=== PATIENT | male | born 1955 | race Caucasian/White ===

== ENCOUNTER 2019-02-27 16:32 | Inpatient (IN) ==
[~2019-02-27 16:32] MED LIST: HEPARIN/NACL 0.9% 2 UNITS/ML 1,000 ML IV ONE; LIDOCAINE 1% 20 ML VIAL ONE
[2019-02-27] MEDS ORDERED: diphenhydrAMINE CAP 25 MG CAPSULE PO PRN (16:53)
[2019-02-27] MEDS ORDERED: POTASSIUM CHLORIDE 20 MEQ TABLET PO PRN (16:53)
[2019-02-27] MEDS ORDERED: DOCUSATE SODIUM 100 MG CAPSULE PO PRN (16:53)
[2019-02-27] MEDS ORDERED: BISACODYL 5 MG TABLET PO PRN (16:53)
[2019-02-27] MEDS ORDERED: MORPHINE 4 MG/1 ML VIAL IV PRN (16:53)
[2019-02-27] MEDS ORDERED: MAGNESIUM SULF RIDER 4 GM in PREMIX 1 EACH IV PRN (16:53)
[2019-02-27] MEDS ORDERED: ACETAMINOPHEN 325 MG TABLET PO PRN (16:53)
[2019-02-27] MEDS ORDERED: ONDANSETRON 4 MG/2 ML VIAL IV PRN (16:53)
[2019-02-27] MEDS ORDERED: PHENYLEPHRINE 50 MG/5 ML VIAL ONE (16:56)
[2019-02-27] MEDS ORDERED: DEXTROSE 50% 25 GM/50 ML VIAL IV PRN (17:00)
[2019-02-27] MEDS ORDERED: PHENYLEPHRINE DRIP 40 MG/250 ML PREMIX IV PRN (17:00)
[2019-02-27] MEDS ORDERED: GLUCAGON 1 MG VIAL IM PRN (17:00)
[2019-02-27] MEDS ORDERED: HEPARIN 5,000 UNIT/1 ML VIAL ONE (17:02)
[2019-02-27] MEDS ORDERED: HEPARIN/NACL 0.9% 2 UNITS/ML 500 ML IV ONE ×3 (17:05→18:02)
[2019-02-27 17:14] LABS: Basophils # 0.1 10*3/uL (0.0-0.2); Basophils % 0.6 % (0.0-0.8); Eosinophils # 0.2 10*3/uL (0.0-0.87); Eosinophils % 0.7 % (0.00-10.9); Hematocrit 41.6 VOL% (42.0-52.0); Hemoglobin 13.4 GM/DL (14.0-18.0); Immature Granulocytes % 2.1 %; Immature Granulocytes Absolute 0.46 #; Lymphocytes # 2.7 10*3/uL (1.4-4.0); Lymphocytes % 12.5 % (21.2-54.2); Mean Corpuscular HGB Conc 32.2 GM/DL (32-36); Mean Corpuscular Volume 94.3 FL (87-102); Mean Platelet Volume 11.2 FL (9.6-12.0); Monocytes % 2.5 % (1.7-12.7); Neutrophils % 81.6 % (38.7-73.9); Platelet Count 319 T/CUMM (130-400); Red Blood Count 4.41 MC/CUMM (3.8-5.5); Red Cell Distribution Width 12.9 % (9.3-17.3); White Blood Count 21.8 T/CUMM (4-12)
[2019-02-27 17:29] LABS: CKMB % 2.6 %
[2019-02-27 17:30] LABS: Troponin I 0.896 NG/ML (0.00-0.045)
[2019-02-27 17:35] LABS: Albumin 3.1 G/DL (3.4-5.0); Band Neutrophils 5 % (0-10); Bilirubin,Total 0.6 MG/DL (0.2-1.0); Calcium 7.9 MG/DL (8.5-10.1); Eosinophils 1 % (0-10); Lymphocytes 9 % (20-55); Osmolality,Calculated 298.5 MOS/KG (273-304); Risk Ratio 6.41; Segmented Neutrophils 81 % (50-85); Thyroid Stimulating Hormone 12.6 uIU/ml (0.358-3.74); Total Cells Counted 100; Total Protein 6.7 G/DL (6.4-8.3)
[2019-02-27 17:36] LABS: Anisocytosis Slight; Atypical Lymphocytes Few; Macrocytosis Slight; Microcytosis Slight
[2019-02-27 17:37] LABS: Platelet Estimate Normal
[2019-02-27] MEDS ORDERED: NITROGLYCERIN DRIP 50 MG/250 ML BOTTLE IV PRN (19:34)
[2019-02-27] MEDS ORDERED: POTASSIUM CHLORIDE 20 MEQ/15 ML UDCUP PO ONE (19:38)
[2019-02-27] MEDS: CISATRACURIUM 200 MG in SODIUM CHLORIDE 0.9% 180 ML IV SCH (19:40)
[2019-02-27] MEDS: PROPOFOL 1,000 MG/100 ML BOTTLE IV SCH (19:40)
[2019-02-27 19:50] LABS: ABG Base Excess -10.5 MMOL/L (-2.5-2.5); ABG HCO3 16.1 MMOL/L (20-26); ABG Oxygen Saturation 82.6 % (95-100); ABG PCO2 58.8 MM HG (35-48); ABG PO2 62.7 MM HG (80-95); ABG TCO2 18.1 MMOL/L (23-27)
[2019-02-27 19:53] LABS: ABG PH 7.143 (7.35-7.45)
[2019-02-27 20:00] LABS: Basophils # 0.2 10*3/uL (0.0-0.2); Basophils % 0.5 % (0.0-0.8); Eosinophils # 0.1 10*3/uL (0.0-0.87); Eosinophils % 0.2 % (0.00-10.9); Hematocrit 43.6 VOL% (42.0-52.0); Hemoglobin 13.7 GM/DL (14.0-18.0); Immature Granulocytes % 1.9 %; Immature Granulocytes Absolute 0.61 #; Lymphocytes # 3.7 10*3/uL (1.4-4.0); Lymphocytes % 11.5 % (21.2-54.2); Mean Corpuscular HGB Conc 31.4 GM/DL (32-36); Mean Corpuscular Volume 96.2 FL (87-102); Mean Platelet Volume 11.6 FL (9.6-12.0); Monocytes % 7.2 % (1.7-12.7); NRBC # 0.02 10*3/uL; Neutrophils % 78.7 % (38.7-73.9); Red Blood Count 4.53 MC/CUMM (3.8-5.5); Red Cell Distribution Width 13.2 % (9.3-17.3)
[2019-02-27 20:01] LABS: Platelet Count 405 T/CUMM (130-400); White Blood Count 32.1 T/CUMM (4-12)
[2019-02-27] MEDS: fentaNYL INJ 1,250 MCG in SODIUM CHLORIDE 0.9% 225 ML IV PRN (20:06)
[2019-02-27] MEDS ORDERED: SODIUM BICARBONATE 50 MEQ/50 ML VIAL IV ONE ×3 (20:15→20:30)
[2019-02-27 20:16] LABS: PT Patient Result 11.1 SECS; Partial Thromboplastin Time 40.8 SECS (0-40)
[2019-02-27 20:21] LABS: Band Neutrophils 2 % (0-10); Lymphocytes 11 % (20-55); Segmented Neutrophils 75 % (50-85); Total Cells Counted 100
[2019-02-27 20:22] LABS: Atypical Lymphocytes 1+; Burr Cells Slight; Platelet Estimate Increased
[2019-02-27 20:23] LABS: CKMB % 5.8 %
[2019-02-27 20:24] LABS: Albumin 3.2 G/DL (3.4-5.0); Bilirubin,Total 0.9 MG/DL (0.2-1.0); Calcium 7.5 MG/DL (8.5-10.1); Osmolality,Calculated 301.4 MOS/KG (273-304); Total Protein 6.8 G/DL (6.4-8.3)
[2019-02-27 20:27] LABS: Troponin I 15.4 NG/ML (0.00-0.045)
[2019-02-27] MEDS: HEPARIN DRIP 25,000 UNITS/500 ML PREMIX IV SCH (20:33)
[2019-02-27] MEDS: SODIUM BICARB INJ 150 MEQ in STERILE WATER INJ 1,000 ML IV SCH (20:41)
[2019-02-27] MEDS ORDERED: PANTOPRAZOLE 40 MG VIAL IV SCH (21:00)
[2019-02-27 21:21] LABS: ABG Base Excess -2.1 MMOL/L (-2.5-2.5); ABG HCO3 22.5 MMOL/L (20-26); ABG Oxygen Saturation 94.6 % (95-100); ABG PCO2 35.5 MM HG (35-48); ABG PH 7.401 (7.35-7.45); ABG PO2 73.5 MM HG (80-95); ABG TCO2 18.9 MMOL/L (23-27)
[2019-02-27] MEDS: FAMOTIDINE 20 MG/2 ML VIAL IV SCH (21:25)
[2019-02-27] MEDS: TICAGRELOR 90 MG TABLET PO SCH (21:25)
[2019-02-27] MEDS: PIPERACILLIN/TAZOBACTAM 3,375 MG in SODIUM CHLORIDE 0.9% 100 ML IV SCH (21:26)
[2019-02-27] MEDS: INSULIN REGULAR 100 UNIT/ML IV SCH (21:30)
[2019-02-27 21:50] LABS: Apearance,Urine Slightly Hazy (Clear); Bilirubin,Urine Negative (Negative); Blood, Urine Large mg/dL (Negative); Glucose,Urine (UA) >=500 mg/dL (Negative); Ketones,Urine Negative (Negative); Mucus,Urine Occasional /LPF (Occasional); Nitrite,Urine Negative (Negative); Protein,Urine 30 MG/DL; RBC,Urine 9 /HPF (0-4); Squamous Epithelial Cell,Urine Occasional /HPF (0-10); Urine Color Yellow (Yellow); Urine Specific Gravity 1.039 (1.001-1.035); Urine Urobilinogen < 2.0 EU/DL (0.2-1.0); WBC,Urine 2 /HPF (0-6)
[2019-02-27] MEDS ORDERED: SODIUM CHLORIDE 0.9% 500 ML IV ONE (22:54)
[2019-02-27] MEDS: INSULIN REGULAR DRIP 100 ML IV PRN (22:55)
[2019-02-27] MEDS: MINERAL OIL/PETROLATUM OPH OINT 3.5 GM TUBE BOTH EYES SCH (23:00)
[2019-02-27] MEDS ORDERED: AMIODARONE INJ 150 MG in DEXTROSE 5% 100 ML IV ONE (23:23)
[2019-02-27] MEDS ORDERED: AMIODARONE INJ 450 MG in DEXTROSE 5% 241 ML IV SCH (23:30)
[2019-02-28] MEDS ORDERED: INSULIN LISPRO 100 UNIT/ML SUBCUT SCH
[2019-02-28 00:05] LABS: ABG Base Excess -3.6 MMOL/L (-2.5-2.5); ABG HCO3 21.4 MMOL/L (20-26); ABG PCO2 29.9 MM HG (35-48); ABG PH 7.424 (7.35-7.45); ABG PO2 78.5 MM HG (80-95); ABG TCO2 16.9 MMOL/L (23-27)
[2019-02-28] MEDS: ALBUTEROL/IPRATROPIUM 3 ML NEB RESP TX SCH ×4 (00:20→21:10)
[2019-02-28] MEDS: INSULIN REGULAR 100 UNIT/ML IV SCH ×3 (00:24→07:36)
[2019-02-28] MEDS: PROPOFOL 1,000 MG/100 ML BOTTLE IV SCH ×4 (00:27→23:33)
[2019-02-28 00:47] LABS: CKMB % 7.4 %
[2019-02-28 00:50] LABS: Troponin I 54.3 NG/ML (0.00-0.045)
[2019-02-28 01:55] LABS: Basophils % 0.3 % (0.0-0.8); Eosinophils % 0.1 % (0.00-10.9); Hematocrit 41.8 VOL% (42.0-52.0); Hemoglobin 13.6 GM/DL (14.0-18.0); Immature Granulocytes % 0.4 %; Immature Granulocytes Absolute 0.05 #; Lymphocytes # 1.3 10*3/uL (1.4-4.0); Lymphocytes % 11.2 % (21.2-54.2); Mean Corpuscular HGB Conc 32.5 GM/DL (32-36); Mean Corpuscular Volume 92.9 FL (87-102); Mean Platelet Volume 11.8 FL (9.6-12.0); Platelet Count 336 T/CUMM (130-400); Red Cell Distribution Width 13.2 % (9.3-17.3); White Blood Count 11.6 T/CUMM (4-12)
[2019-02-28 02:03] LABS: INR 1.1
[2019-02-28 02:08] LABS: Partial Thromboplastin Time 62.5 SECS (0-40)
[2019-02-28 02:19] LABS: Calcium 7.3 MG/DL (8.5-10.1); Osmolality,Calculated 307.1 MOS/KG (273-304)
[2019-02-28] MEDS ORDERED: SODIUM CHLORIDE 0.9% 500 ML IV ONE ×4 (02:51→15:00)
[2019-02-28] MEDS ORDERED: POTASSIUM CHLORIDE RIDER 20 MEQ in PREMIX 1 EACH IV ONE (02:53)
[2019-02-28] MEDS: MAGNESIUM SULF RIDER 2 GM in PREMIX 1 EACH IV PRN ×2 (03:00→13:14)
[2019-02-28 03:37] LABS: ABG Base Excess -7.4 MMOL/L (-2.5-2.5); ABG HCO3 18.3 MMOL/L (20-26); ABG Oxygen Saturation 88.8 % (95-100); ABG PH 7.325 (7.35-7.45); ABG PO2 61.2 MM HG (80-95); ABG TCO2 15.6 MMOL/L (23-27)
[2019-02-28] MEDS: PHENYLEPHRINE INJ 160 MG in SODIUM CHLORIDE 0.9% 234 ML IV PRN ×2 (05:00→18:29)
[2019-02-28 05:02] LABS: ABG Base Excess -5.7 MMOL/L (-2.5-2.5); ABG HCO3 19.6 MMOL/L (20-26); ABG Oxygen Saturation 91.4 % (95-100); ABG PCO2 36.2 MM HG (35-48); ABG PH 7.338 (7.35-7.45); ABG PO2 66.8 MM HG (80-95); ABG TCO2 16.9 MMOL/L (23-27)
[2019-02-28] MEDS: PIPERACILLIN/TAZOBACTAM 3,375 MG in SODIUM CHLORIDE 0.9% 100 ML IV SCH ×3 (05:18→21:55)
[2019-02-28] MEDS: AMIODARONE INJ 450 MG in DEXTROSE 5% 241 ML IV SCH ×2 (05:52→22:21)
[2019-02-28 06:13] LABS: CKMB % 8.3 %
[2019-02-28 06:17] LABS: Troponin I 63.1 NG/ML (0.00-0.045)
[2019-02-28 06:28] LABS: Basophils % 0.2 % (0.0-0.8); Hematocrit 39.7 VOL% (42.0-52.0); Hemoglobin 13.5 GM/DL (14.0-18.0); Immature Granulocytes % 0.3 %; Immature Granulocytes Absolute 0.03 #; Lymphocytes # 1.4 10*3/uL (1.4-4.0); Mean Corpuscular Volume 90.2 FL (87-102); Mean Platelet Volume 11.4 FL (9.6-12.0); Monocytes % 2.3 % (1.7-12.7); Neutrophils % 82.2 % (38.7-73.9); Platelet Count 326 T/CUMM (130-400); Red Cell Distribution Width 13.2 % (9.3-17.3); White Blood Count 9.1 T/CUMM (4-12)
[2019-02-28 06:49] LABS: Calcium 6.9 MG/DL (8.5-10.1); Osmolality,Calculated 301.1 MOS/KG (273-304)
[2019-02-28] MEDS: fentaNYL INJ 1,250 MCG in SODIUM CHLORIDE 0.9% 225 ML IV PRN ×2 (07:09→18:56)
[2019-02-28 07:18] LABS: Band Neutrophils 16 % (0-10); Lymphocytes 18 % (20-55); Metamyelocytes 7 %; Segmented Neutrophils 54 % (50-85); Total Cells Counted 100
[2019-02-28 07:19] LABS: Microcytosis Slight
[2019-02-28] MEDS: SODIUM BICARB INJ 150 MEQ in STERILE WATER INJ 1,000 ML IV SCH (07:39)
[2019-02-28] MEDS ORDERED: POTASSIUM CHLORIDE RIDER 100 ML IV ONE ×3 (07:45→09:00)
[2019-02-28 08:06] LABS: INR 1.1; PT Patient Result 11.7 SECS
[2019-02-28 08:42] LABS: Partial Thromboplastin Time 182.3 SECS (0-40)
[2019-02-28] MEDS ORDERED: PANTOPRAZOLE 40 MG TABLET PO SCH (09:00)
[2019-02-28] MEDS: ASPIRIN EC 81 MG TABLET PO SCH (09:19)
[2019-02-28] MEDS: FAMOTIDINE 20 MG/2 ML VIAL IV SCH ×2 (09:19→21:55)
[2019-02-28] MEDS: TICAGRELOR 90 MG TABLET PO SCH ×2 (09:19→22:38)
[2019-02-28 09:23] LABS: Apearance,Urine CLEAR (Clear); Bacteria,Urine Occasional /HPF (Few); Bilirubin,Urine Negative (Negative); Blood, Urine Large mg/dL (Negative); Glucose,Urine (UA) >=500 mg/dL (Negative); Ketones,Urine Negative (Negative); Mucus,Urine Occasional /LPF (Occasional); Nitrite,Urine Negative (Negative); Protein,Urine 30 MG/DL; RBC,Urine 144 /HPF (0-4); Squamous Epithelial Cell,Urine Occasional /HPF (0-10); Urine Color Yellow (Yellow); Urine Specific Gravity 1.033 (1.001-1.035); Urine Urobilinogen < 2.0 EU/DL (0.2-1.0); WBC,Urine 6 /HPF (0-6)
[2019-02-28] MEDS: MINERAL OIL/PETROLATUM OPH OINT 3.5 GM TUBE BOTH EYES SCH ×3 (09:25→21:55)
[2019-02-28 10:43] LABS: ABG Base Excess -19.4 MMOL/L (-2.5-2.5); ABG HCO3 6.7 MMOL/L (20-26); ABG Oxygen Saturation 90.5 % (95-100); ABG PO2 79.3 MM HG (80-95); ABG TCO2 7.2 MMOL/L (23-27)
[2019-02-28 10:45] LABS: ABG PCO2 17.2 MM HG (35-48); ABG PH 7.209 (7.35-7.45)
[2019-02-28 10:59] LABS: ABG Base Excess -7.8 MMOL/L (-2.5-2.5); ABG HCO3 17.9 MMOL/L (20-26); ABG Oxygen Saturation 85.1 % (95-100); ABG PCO2 37.1 MM HG (35-48); ABG PH 7.296 (7.35-7.45); ABG PO2 56.5 MM HG (80-95)
[2019-02-28] MEDS ORDERED: CALCIUM CHLORIDE 1,000 MG/10 ML SYRINGE IV ONE ×2 (11:00)
[2019-02-28] MEDS ORDERED: SODIUM BICARBONATE 50 MEQ/50 ML VIAL IV ONE ×2 (11:00→11:02)
[2019-02-28] MEDS ORDERED: SODIUM CHLORIDE 0.9% 1,000 ML IV ONE (11:00)
[2019-02-28] MEDS: INSULIN REGULAR DRIP 100 ML IV PRN ×3 (11:20→22:16)
[2019-02-28 11:28] LABS: Basophils % 0.3 % (0.0-0.8); Hematocrit 37.9 VOL% (42.0-52.0); Hemoglobin 12.2 GM/DL (14.0-18.0); Immature Granulocytes % 0.6 %; Immature Granulocytes Absolute 0.05 #; Lymphocytes # 1.3 10*3/uL (1.4-4.0); Lymphocytes % 16.9 % (21.2-54.2); Mean Corpuscular HGB Conc 32.2 GM/DL (32-36); Mean Corpuscular Volume 92.2 FL (87-102); Mean Platelet Volume 11.2 FL (9.6-12.0); Monocytes % 2.1 % (1.7-12.7); Neutrophils % 80.1 % (38.7-73.9); Platelet Count 283 T/CUMM (130-400); Red Blood Count 4.11 MC/CUMM (3.8-5.5); Red Cell Distribution Width 13.2 % (9.3-17.3); White Blood Count 7.9 T/CUMM (4-12)
[2019-02-28] MEDS: HEPARIN DRIP 25,000 UNITS/500 ML PREMIX IV SCH ×2 (11:29→17:00)
[2019-02-28 11:58] LABS: Band Neutrophils 10 % (0-10); Eosinophils 1 % (0-10); Lymphocytes 21 % (20-55); Metamyelocytes 3 %; Segmented Neutrophils 63 % (50-85); Total Cells Counted 100
[2019-02-28 11:59] LABS: Atypical Lymphocytes Few; Microcytosis Slight
[2019-02-28 12:00] LABS: Platelet Estimate Normal
[2019-02-28 12:05] LABS: Bilirubin,Total 0.9 MG/DL (0.2-1.0); Calcium 8.1 MG/DL (8.5-10.1); Osmolality,Calculated 304.8 MOS/KG (273-304); Total Protein 4.4 G/DL (6.4-8.3)
[2019-02-28 12:16] LABS: CKMB % 9.6 %
[2019-02-28 12:17] LABS: Troponin I 59.8 NG/ML (0.00-0.045)
[2019-02-28] MEDS: POTASSIUM CHLORIDE RIDER 100 ML IV PRN ×2 (12:37→13:22)
[2019-02-28] MEDS: POTASSIUM CHLORIDE RIDER 20 MEQ in PREMIX 1 EACH IV SCH ×5 (13:51→18:39)
[2019-02-28 14:41] LABS: Basophils % 0.3 % (0.0-0.8); Hematocrit 39.5 VOL% (42.0-52.0); Hemoglobin 12.9 GM/DL (14.0-18.0); Immature Granulocytes % 0.5 %; Immature Granulocytes Absolute 0.04 #; Lymphocytes # 1.3 10*3/uL (1.4-4.0); Lymphocytes % 14.4 % (21.2-54.2); Mean Corpuscular HGB Conc 32.7 GM/DL (32-36); Mean Corpuscular Volume 92.3 FL (87-102); Mean Platelet Volume 11.2 FL (9.6-12.0); Monocytes % 3.5 % (1.7-12.7); Neutrophils % 81.3 % (38.7-73.9); Platelet Count 285 T/CUMM (130-400); Red Blood Count 4.28 MC/CUMM (3.8-5.5); Red Cell Distribution Width 13.4 % (9.3-17.3); White Blood Count 8.8 T/CUMM (4-12)
[2019-02-28 15:45] LABS: Anisocytosis 1+; Band Neutrophils 15 % (0-10); Lymphocytes 24 % (20-55); Metamyelocytes 1 %; Microcytosis 1+; Segmented Neutrophils 58 % (50-85); Total Cells Counted 100
[2019-02-28 15:46] LABS: Burr Cells 1+; Macrocytosis 1+; Platelet Estimate Normal; Poikilocytosis 1+
[2019-02-28 15:56] LABS: ABG Base Excess -7.4 MMOL/L (-2.5-2.5); ABG Oxygen Saturation 74.7 % (95-100); ABG PCO2 44.9 MM HG (35-48); ABG PH 7.255 (7.35-7.45); ABG PO2 47.2 MM HG (80-95); ABG TCO2 17.7 MMOL/L (23-27)
[2019-02-28 16:10] LABS: INR 1.2; PT Patient Result 12.7 SECS
[2019-02-28 16:33] LABS: Partial Thromboplastin Time > 320.0 SECS (0-40)
[2019-02-28] MEDS ORDERED: FUROSEMIDE 40 MG/4 ML VIAL IV ONE (16:45)
[2019-02-28] MEDS: methylPREDNISolone SOD SUC 125 MG/2 ML VIAL IV SCH ×2 (16:52→23:34)
[2019-02-28 16:55] LABS: ABG Base Excess -7.8 MMOL/L (-2.5-2.5); ABG HCO3 17.8 MMOL/L (20-26); ABG Oxygen Saturation 75.8 % (95-100); ABG PCO2 49.3 MM HG (35-48); ABG PH 7.224 (7.35-7.45); ABG PO2 49.4 MM HG (80-95); ABG TCO2 18.3 MMOL/L (23-27)
[2019-02-28 18:54] LABS: Basophils % 0.4 % (0.0-0.8); Hematocrit 40.9 VOL% (42.0-52.0); Hemoglobin 13.1 GM/DL (14.0-18.0); Immature Granulocytes % 0.3 %; Immature Granulocytes Absolute 0.03 #; Lymphocytes # 1.2 10*3/uL (1.4-4.0); Lymphocytes % 13.9 % (21.2-54.2); Mean Corpuscular Volume 93.2 FL (87-102); Mean Platelet Volume 11.5 FL (9.6-12.0); Monocytes % 2.1 % (1.7-12.7); Neutrophils % 83.3 % (38.7-73.9); Platelet Count 284 T/CUMM (130-400); Red Blood Count 4.39 MC/CUMM (3.8-5.5); Red Cell Distribution Width 13.4 % (9.3-17.3); White Blood Count 8.9 T/CUMM (4-12)
[2019-02-28 19:10] LABS: INR 1.2; PT Patient Result 12.7 SECS
[2019-02-28 19:14] LABS: Calcium 7.1 MG/DL (8.5-10.1); Osmolality,Calculated 296.4 MOS/KG (273-304)
[2019-02-28 19:32] LABS: CKMB % 11.8 %
[2019-02-28 19:33] LABS: Anisocytosis 1+; Atypical Lymphocytes 1+; Band Neutrophils 24 % (0-10); Burr Cells 2+; Lymphocytes 19 % (20-55); Macrocytosis 1+; Metamyelocytes 6 %; Microcytosis 1+; Poikilocytosis 2+; Segmented Neutrophils 50 % (50-85); Total Cells Counted 100
[2019-02-28 19:34] LABS: Platelet Estimate Normal
[2019-02-28 19:35] LABS: Troponin I 43.8 NG/ML (0.00-0.045)
[2019-02-28 19:38] LABS: Partial Thromboplastin Time > 320.0 SECS (0-40)
[2019-02-28] MEDS: CISATRACURIUM 200 MG in SODIUM CHLORIDE 0.9% 180 ML IV SCH (23:45)
[2019-03-01 01:16] LABS: Calcium 7.2 MG/DL (8.5-10.1)
[2019-03-01 01:17] LABS: INR 1.3; PT Patient Result 13.6 SECS
[2019-03-01] MEDS: ALBUTEROL/IPRATROPIUM 3 ML NEB RESP TX SCH ×4 (01:24→19:13)
[2019-03-01 01:28] LABS: Basophils % 0.2 % (0.0-0.8); Eosinophils % 0.1 % (0.00-10.9); Hematocrit 43.6 VOL% (42.0-52.0); Hemoglobin 13.8 GM/DL (14.0-18.0); Immature Granulocytes % 0.9 %; Lymphocytes % 9.1 % (21.2-54.2); Mean Corpuscular HGB Conc 31.7 GM/DL (32-36); Mean Platelet Volume 11.8 FL (9.6-12.0); Neutrophils % 86.7 % (38.7-73.9); Platelet Count 275 T/CUMM (130-400); Red Blood Count 4.59 MC/CUMM (3.8-5.5); Red Cell Distribution Width 13.6 % (9.3-17.3); White Blood Count 10.8 T/CUMM (4-12)
[2019-03-01] MEDS ORDERED: POTASSIUM CHLORIDE RIDER 10 MEQ in PREMIX 1 EACH IV ONE (01:41)
[2019-03-01] MEDS: INSULIN REGULAR DRIP 100 ML IV PRN ×4 (02:23→17:04)
[2019-03-01 02:47] LABS: Partial Thromboplastin Time > 320.0 SECS (0-40)
[2019-03-01] MEDS: PHENYLEPHRINE INJ 160 MG in SODIUM CHLORIDE 0.9% 234 ML IV PRN ×3 (02:50→17:43)
[2019-03-01 04:04] LABS: Band Neutrophils 38 % (0-10); Lymphocytes 8 % (20-55); Metamyelocytes 3 %; Myelocytes 2 %; Platelet Estimate Normal; Reactive Lymphocytes 1+; Segmented Neutrophils 47 % (50-85); Total Cells Counted 100
[2019-03-01 04:29] LABS: ABG Base Excess -10.1 MMOL/L (-2.5-2.5); ABG HCO3 19.1 MMOL/L (20-26); ABG Oxygen Saturation 86.7 % (95-100); ABG PCO2 55.2 MM HG (35-48); ABG PO2 67.2 MM HG (80-95); ABG TCO2 20.8 MMOL/L (23-27)
[2019-03-01 04:31] LABS: ABG PH 7.156 (7.35-7.45)
[2019-03-01] MEDS ORDERED: SODIUM BICARBONATE 50 MEQ/50 ML VIAL IV ONE ×2 (05:12→08:14)
[2019-03-01] MEDS: SODIUM BICARB INJ 150 MEQ in STERILE WATER INJ 850 ML IV SCH ×2 (05:30→18:05)
[2019-03-01] MEDS: methylPREDNISolone SOD SUC 125 MG/2 ML VIAL IV SCH ×4 (05:35→22:40)
[2019-03-01] MEDS: PIPERACILLIN/TAZOBACTAM 3,375 MG in SODIUM CHLORIDE 0.9% 100 ML IV SCH ×3 (05:35→22:41)
[2019-03-01 06:43] LABS: Basophils % 0.3 % (0.0-0.8); Hematocrit 41.4 VOL% (42.0-52.0); Hemoglobin 13.2 GM/DL (14.0-18.0); Immature Granulocytes % 0.6 %; Immature Granulocytes Absolute 0.09 #; Lymphocytes # 1.2 10*3/uL (1.4-4.0); Lymphocytes % 7.9 % (21.2-54.2); Mean Corpuscular HGB Conc 31.9 GM/DL (32-36); Mean Corpuscular Volume 94.5 FL (87-102); Mean Platelet Volume 11.8 FL (9.6-12.0); Neutrophils % 88.2 % (38.7-73.9); Platelet Count 276 T/CUMM (130-400); Red Blood Count 4.38 MC/CUMM (3.8-5.5); Red Cell Distribution Width 13.7 % (9.3-17.3); White Blood Count 14.5 T/CUMM (4-12)
[2019-03-01] MEDS: PROPOFOL 1,000 MG/100 ML BOTTLE IV SCH ×4 (06:43→23:23)
[2019-03-01 06:57] LABS: Calcium 6.9 MG/DL (8.5-10.1)
[2019-03-01 07:00] LABS: INR 1.3; PT Patient Result 13.8 SECS
[2019-03-01 07:12] LABS: Band Neutrophils 32 % (0-10); Lymphocytes 5 % (20-55); Metamyelocytes 2 %; Myelocytes 1 %; Segmented Neutrophils 58 % (50-85); Total Cells Counted 100
[2019-03-01 07:13] LABS: Platelet Estimate Normal; Polychromasia Slight
[2019-03-01 07:16] LABS: Partial Thromboplastin Time 102.5 SECS (0-40)
[2019-03-01] MEDS: fentaNYL INJ 1,250 MCG in SODIUM CHLORIDE 0.9% 225 ML IV PRN (07:36)
[2019-03-01 08:04] LABS: ABG Base Excess -9.3 MMOL/L (-2.5-2.5); ABG Oxygen Saturation 92.6 % (95-100); ABG PCO2 56.4 MM HG (35-48); ABG PO2 81.1 MM HG (80-95); ABG TCO2 18.5 MMOL/L (23-27)
[2019-03-01 08:06] LABS: ABG PH 7.166 (7.35-7.45)
[2019-03-01] MEDS ORDERED: ALBUMIN 25% 50 GM in PREMIX 1 EACH IV ONE (08:15)
[2019-03-01] MEDS ORDERED: FUROSEMIDE 100 MG/10 ML VIAL IV ONE (08:16)
[2019-03-01] MEDS: MINERAL OIL/PETROLATUM OPH OINT 3.5 GM TUBE BOTH EYES SCH ×3 (09:26→22:17)
[2019-03-01] MEDS: ASPIRIN EC 81 MG TABLET PO SCH (09:26)
[2019-03-01] MEDS: FAMOTIDINE 20 MG/2 ML VIAL IV SCH ×2 (09:26→22:40)
[2019-03-01] MEDS: TICAGRELOR 90 MG TABLET PO SCH ×2 (09:26→22:40)
[2019-03-01 10:51] LABS: ABG Base Excess -1.9 MMOL/L (-2.5-2.5); ABG HCO3 22.7 MMOL/L (20-26); ABG Oxygen Saturation 90.1 % (95-100); ABG PCO2 59.1 MM HG (35-48); ABG PH 7.259 (7.35-7.45); ABG PO2 66.7 MM HG (80-95)
[2019-03-01] MEDS ORDERED: POTASSIUM CHLORIDE RIDER 100 ML IV ONE (10:52)
[2019-03-01] MEDS ORDERED: POTASSIUM CHLORIDE RIDER 20 MEQ in PREMIX 1 EACH IV ONE (10:57)
[2019-03-01 14:04] LABS: Basophils % 0.3 % (0.0-0.8); Hematocrit 33.8 VOL% (42.0-52.0); Hemoglobin 11.1 GM/DL (14.0-18.0); Immature Granulocytes % 0.7 %; Lymphocytes # 0.8 10*3/uL (1.4-4.0); Mean Corpuscular HGB Conc 32.8 GM/DL (32-36); Mean Corpuscular Volume 92.1 FL (87-102); Mean Platelet Volume 11.6 FL (9.6-12.0); Monocytes % 2.6 % (1.7-12.7); Neutrophils % 91.4 % (38.7-73.9); Platelet Count 207 T/CUMM (130-400); Red Blood Count 3.67 MC/CUMM (3.8-5.5); Red Cell Distribution Width 13.6 % (9.3-17.3); White Blood Count 15.1 T/CUMM (4-12)
[2019-03-01 14:13] LABS: INR 1.3; PT Patient Result 13.9 SECS; Partial Thromboplastin Time 38.3 SECS (0-40)
[2019-03-01 14:22] LABS: Calcium 7.1 MG/DL (8.5-10.1)
[2019-03-01 14:25] LABS: Band Neutrophils 20 % (0-10); Hypochromasia Slight; Lymphocytes 9 % (20-55); Metamyelocytes 1 %; Segmented Neutrophils 69 % (50-85); Total Cells Counted 100
[2019-03-01 14:26] LABS: Platelet Estimate Adequate
[2019-03-01] MEDS: HEPARIN 5,000 UNIT/1 ML VIAL IV PRN (14:37)
[2019-03-01] MEDS: AMIODARONE INJ 450 MG in DEXTROSE 5% 241 ML IV SCH (14:41)
[2019-03-01 15:10] LABS: ABG Base Excess 1.9 MMOL/L (-2.5-2.5); ABG PCO2 56.5 MM HG (35-48); ABG PH 7.323 (7.35-7.45); ABG PO2 80.8 MM HG (80-95); ABG TCO2 26.1 MMOL/L (23-27)
[2019-03-01] MEDS ORDERED: POTASSIUM CHLORIDE INJ 80 MEQ in SODIUM CHLORIDE 0.9% 500 ML IV ONE (15:30)
[2019-03-01 17:41] LABS: ABG Base Excess 4.7 MMOL/L (-2.5-2.5); ABG HCO3 28.6 MMOL/L (20-26); ABG Oxygen Saturation 96.2 % (95-100); ABG PCO2 54.2 MM HG (35-48); ABG PO2 85.1 MM HG (80-95); ABG TCO2 27.9 MMOL/L (23-27)
[2019-03-01] MEDS: HEPARIN DRIP 25,000 UNITS/500 ML PREMIX IV SCH (17:41)
[2019-03-01 17:42] LABS: Basophils % 0.2 % (0.0-0.8); Hematocrit 31.9 VOL% (42.0-52.0); Hemoglobin 10.5 GM/DL (14.0-18.0); Immature Granulocytes % 0.8 %; Immature Granulocytes Absolute 0.13 #; Lymphocytes # 0.8 10*3/uL (1.4-4.0); Lymphocytes % 4.7 % (21.2-54.2); Mean Corpuscular HGB Conc 32.9 GM/DL (32-36); Mean Corpuscular Volume 91.7 FL (87-102); Mean Platelet Volume 11.7 FL (9.6-12.0); Monocytes % 2.3 % (1.7-12.7); Platelet Count 204 T/CUMM (130-400); Red Blood Count 3.48 MC/CUMM (3.8-5.5); Red Cell Distribution Width 13.7 % (9.3-17.3); White Blood Count 16.1 T/CUMM (4-12)
[2019-03-01 17:54] LABS: INR 1.3; PT Patient Result 14.2 SECS
[2019-03-01] MEDS: ALBUMIN 25% 25 GM in PREMIX 1 EACH IV SCH (17:54)
[2019-03-01 18:00] LABS: Partial Thromboplastin Time 55.8 SECS (0-40)
[2019-03-01 18:13] LABS: Bilirubin,Total 1.2 MG/DL (0.2-1.0); Calcium 6.7 MG/DL (8.5-10.1); Osmolality,Calculated 298.7 MOS/KG (273-304); Total Protein 5.7 G/DL (6.4-8.3)
[2019-03-01 18:14] LABS: CKMB % 11.7 %
[2019-03-01 18:15] LABS: Band Neutrophils 22 % (0-10); Lymphocytes 5 % (20-55); Metamyelocytes 1 %; Segmented Neutrophils 69 % (50-85); Total Cells Counted 100
[2019-03-01 18:16] LABS: Hypochromasia Slight; Platelet Estimate Adequate; Polychromasia Slight
[2019-03-01] MEDS ORDERED: PROPOFOL 1,000 MG/100 ML BOTTLE IV ONE (18:59)
[2019-03-01] MEDS ORDERED: LORazepam 2 MG/1 ML VIAL ONE (19:02)
[2019-03-01] MEDS: LORazepam 2 MG/1 ML VIAL IV PRN (19:06)
[2019-03-01] MEDS: INSULIN REGULAR 100 UNIT/ML IV SCH (22:16)
[2019-03-02] MEDS: INSULIN REGULAR 100 UNIT/ML IV SCH ×4 (00:15→06:31)
[2019-03-02] MEDS: ALBUMIN 25% 25 GM in PREMIX 1 EACH IV SCH ×2 (00:15→09:23)
[2019-03-02] MEDS: LORazepam 2 MG/1 ML VIAL IV PRN ×3 (00:30→02:56)
[2019-03-02] MEDS: ALBUTEROL/IPRATROPIUM 3 ML NEB RESP TX SCH ×3 (00:54→13:20)
[2019-03-02] MEDS: HEPARIN 5,000 UNIT/1 ML VIAL IV PRN (01:04)
[2019-03-02] MEDS: PHENYLEPHRINE INJ 160 MG in SODIUM CHLORIDE 0.9% 234 ML IV PRN ×2 (01:17→08:47)
[2019-03-02] MEDS: HEPARIN DRIP 25,000 UNITS/500 ML PREMIX IV SCH (01:19)
[2019-03-02 03:11] LABS: ABG HCO3 22.6 MMOL/L (20-26); ABG Oxygen Saturation 87.7 % (95-100); ABG PCO2 48.5 MM HG (35-48); ABG PH 7.312 (7.35-7.45); ABG PO2 62.6 MM HG (80-95); ABG TCO2 22.5 MMOL/L (23-27)
[2019-03-02] MEDS: PROPOFOL 1,000 MG/100 ML BOTTLE IV SCH ×2 (03:32→08:46)
[2019-03-02 04:23] LABS: Basophils % 0.2 % (0.0-0.8); Hematocrit 28.9 VOL% (42.0-52.0); Hemoglobin 9.4 GM/DL (14.0-18.0); Immature Granulocytes Absolute 0.57 #; Lymphocytes # 0.7 10*3/uL (1.4-4.0); Lymphocytes % 3.5 % (21.2-54.2); Mean Corpuscular HGB Conc 32.5 GM/DL (32-36); Mean Corpuscular Volume 93.2 FL (87-102); Mean Platelet Volume 12.2 FL (9.6-12.0); Monocytes % 3.3 % (1.7-12.7); NRBC # 0.05 10*3/uL; Platelet Count 186 T/CUMM (130-400); Red Cell Distribution Width 13.9 % (9.3-17.3); White Blood Count 18.9 T/CUMM (4-12)
[2019-03-02] MEDS: SODIUM BICARB INJ 150 MEQ in STERILE WATER INJ 850 ML IV SCH (04:40)
[2019-03-02 04:48] LABS: Albumin 3.3 G/DL (3.4-5.0); Bilirubin,Total 1.9 MG/DL (0.2-1.0); Calcium 6.6 MG/DL (8.5-10.1); Osmolality,Calculated 295.8 MOS/KG (273-304); Total Protein 5.9 G/DL (6.4-8.3)
[2019-03-02 04:53] LABS: Band Neutrophils 25 % (0-10); Lymphocytes 4 % (20-55); Metamyelocytes 2 %; Segmented Neutrophils 65 % (50-85); Total Cells Counted 100
[2019-03-02] MEDS: methylPREDNISolone SOD SUC 125 MG/2 ML VIAL IV SCH ×2 (05:07→11:30)
[2019-03-02] MEDS: PIPERACILLIN/TAZOBACTAM 3,375 MG in SODIUM CHLORIDE 0.9% 100 ML IV SCH ×2 (05:09→15:12)
[2019-03-02] MEDS: AMIODARONE INJ 450 MG in DEXTROSE 5% 241 ML IV SCH (06:41)
[2019-03-02] MEDS: INSULIN REGULAR 100 UNIT/ML SUBCUT SCH ×3 (08:45→18:26)
[2019-03-02] MEDS ORDERED: ASPIRIN CHEW 81 MG TABLET PO SCH (09:00)
[2019-03-02] MEDS: TICAGRELOR 90 MG TABLET PO SCH (09:23)
[2019-03-02] MEDS: FAMOTIDINE 20 MG/2 ML VIAL IV SCH (09:23)
[2019-03-02] MEDS: MINERAL OIL/PETROLATUM OPH OINT 3.5 GM TUBE BOTH EYES SCH ×2 (09:52→17:45)
[2019-03-02 14:21] LABS: INR 1.7; PT Patient Result 18.6 SECS; Partial Thromboplastin Time 39.4 SECS (0-40)
== END 2019-03-02 15:45 | disposition expired | DRG 270 ==
LOC: N.CL 16:32 → EDBD 16:32 → N.CL 16:37 → N.ICU 16:53 → N.CL 16:53 → N.ICU 19:13
PROVIDERS: ADMIT Internal Medicine Cardiovascular Disease; ATTEND Internal Medicine Cardiovascular Disease
PROC: CLCCHCL (ICD-10-PCS; 2019-02-27 16:45)